=== PATIENT | male | born 1960 | race Two or more races ===

== ENCOUNTER 2021-05-23 08:47 | Emergency (ER) | payer SELFPAY ==
[~2021-05-23] VITALS: Ht 175.3 cm; Wt 83.6 kg
[2021-05-23 08:54] VITALS: BP 164/101
[2021-05-23] MEDS ORDERED: CETI10TA74 PO (09:06)
--- NOTE | 2021-05-23 09:06 | PHYS DOC ---
General Adult EDM: Chief Complaint: EYE PROBLEMS HPI: HPI: 60-year-old male presents to the emergency department complaining of bilateral eye redness and itchiness for the last several days it has been gradually increasing. He reports clear tearing of the eyes, no vision changes, no trauma or foreign body sensation to the eye. He has not tried anything for his symptoms so far. He does not wear contact lenses but wears glasses at home. He has never had eye surgery. The patient denies nausea, vomiting, fever, chills, chest pain, shortness of breath, abdominal pain, urinary symptoms, cough, recent trauma, or any other complaints. Review of Systems: Review of Systems: ROS is otherwise negative except for what was mentioned in HPI Heart Score: C/O Chest Pain: No Allergies: Allergies: Allergies Coded Allergies Type Severity Reaction Last Updated Verified No Known Drug Allergies 05/23/21 No Physical Exam: PE: Constitutional: No acute distress, non-toxic appearance. HENT: Atraumatic, bilateral external ears normal, nose normal. Eyes: PERRLA, EOMI, conjunctive are injected mildly bilaterally, extraocular movements are without pain, clear discharge. Visual acuities: OD, 20/25, OS: 20/30, OU: 20/20 (corrected) Neck: Normal range of motion, supple, no stridor. Cardiovascular: Heart rate regular rhythm. 2+ radial pulses Lungs & Thorax: No respiratory distress, symmetrical expansion. Skin: Warm, dry. Extremities: No tenderness, no cyanosis, ROM intact, no edema. Neurologic: Alert and oriented X 3, normal motor function, normal sensory function, no focal deficits noted. Non ataxic gait. GCS 15. Psychologic: Affect normal, judgment normal, mood normal. Current Patient Data: Vital Signs: Vital Signs Date Time Temp Pulse Resp B/P (MAP) Pulse Ox O2 Delivery O2 Flow Rate FiO2 05/23/21 08:54 98.5 76 16 164/101 (122) 98 Room Air 98.5 Course & Med Decision Making: Course & Med Decision Making Examination is consistent with a allergic conjunctivitis. Allergy treatment was prescribed, patient otherwise appears well there is no sign of of a bacterial infection at this time or history nor exam findings suggestive of corneal abrasion Departure Departure Impression: Primary Impression: Allergic conjunctivitis Disposition: HOME / SELF CARE / HOMELESS Condition: STABLE Referrals: [facility] Patient Instructions: Allergic Conjunctivitis, [id number] Additional Instructions: You were seen in the emergency department and your health condition was deemed not to require admission to the hospital. It is important to realize that we can only evaluate you during the time that you are in her department. Occasionally health conditions can worsen upon leaving the emergency department. If this were to happen, please return to and allow us the opportunity to reevaluate you. It is a pleasure to take care of your health needs. Return to the ER if your symptoms worsen, do not improve, or if you develop additional symptoms that are concerning to you Scripts Cetirizine Hcl (ZYRTEC) 10 Mg Tablet 1 TAB PO DAILY for 10 Days, #10 TAB 0 Refills Prov: DEON JOHNS DO 05/23/21 DEON JOHNS DO May 23, 2021 09:06
[2021-05-23] MEDS ORDERED: diphenhydrAMINE HCL 25 MG CAPSULE PO ONE (09:15)
[2021-05-23] MEDS ORDERED: CETIRIZINE HCL 10 MG TABLET. PO ONE (09:30)
== END 2021-05-23 09:17 | disposition home or self-care (01) ==
LOC: ER 08:47
DX: H10.13 Acute atopic conjunctivitis, bilateral (principal)
CPT/HCPCS: 99283; Q0163